=== PATIENT | male | born 1965 | race African-American/Black ===

== ENCOUNTER 2018-09-22 15:07 | Inpatient (IN) | payer OTHER ==
--- NOTE | 2018-09-22 15:33 | PDOC ---
Rapid Medical Evaluation Chief Complaint: Respiratory Time Seen by Provider: 09/22/18 15:30 Medical Evaluation: Allergies Allergy/AdvReac Type Severity Reaction Status Date / Time morphine Allergy Severe Rash Verified 09/22/18 15:31 09/22/18 15:35 I have performed a brief in-person evaluation of this patient. The patient presents with a chief complaint of: h/o CHF, HTN, DM, COPD sent in by pulmologist for evalution for worsening SOB x 3 days. Pertinent physical exam findings: A&O x 3. mild labored breathing I have ordered the following: CBC, CMP, EKG, Cardiac profile. BNP, CXR The patient will proceed to the ED for further evaluation. Discharge Disposition - Diagnosis CHF (congestive heart failure), SOB (shortness of breath) - Discharge Dispostion Condition at time of disposition: Stable - Referrals - Patient Instructions - Post Discharge Activity
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
[2018-09-22] MEDS ORDERED: ALBUTEROL SO4 2.5/IPRATROPIUM 0.5 INH SOL 3 ML VIAL.NEB. NEB ONE (16:41)
[2018-09-22 16:46] LABS: VENOUS PC02 45.1 mmHg (41-51); VENOUS PH 7.38 (7.31-7.41); VENOUS PO2 55.9 mmHg (30-40)
[2018-09-22 16:46] LABS: BASO % 0.5 % (0-2.0); EOS % 2.1 % (0-4.5); HEMATOCRIT 29.4 % (35.4-49); HEMOGLOBIN 9.4 GM/dL (11.7-16.9); LYMPH % 20.8 % (8-40); MCH 28.6 pg (25.7-33.7); MCHC 32.1 g/dl (32.0-35.9); MEAN PLT VOLUME 7.9 fl (7.5-11.1); MONO % 8.8 % (3.8-10.2); NEUT % 67.8 % (42.8-82.8); PLATELET COUNT 247 K/MM3 (134-434); RDW 16.8 % (11.9-15.9); WHITE BLOOD COUNT 7.1 K/mm3 (4.0-10.0)
[2018-09-22] MEDS: ALBUTEROL SO4 2.5/IPRATROPIUM 0.5 INH SOL 3 ML VIAL.NEB. NEB SCH (16:49)
[2018-09-22 17:07] LABS: INR 0.98 (0.83-1.09); PROTHROMBIN TIME (PATIENT) 11.6 SEC (9.7-13.0)
[2018-09-22 17:10] LABS: ACTIVATED PTT 38.6 SECONDS (25.2-36.5)
[2018-09-22 17:16] LABS: ALK PHOS 72 U/L (45-117); ANION GAP 8 MMOL/L (8-16); BILIRUBIN,TOTAL 0.5 mg/dL (0.2-1); BLOOD UREA NITROGEN 15 mg/dL (7-18); CALCIUM 8.8 mg/dL (8.5-10.1); CHLORIDE 102 mmol/L (98-107); CO2 28 mmol/L (21-32); CREATININE 2.4 mg/dL (0.55-1.3); GLUCOSE,RANDOM 105 mg/dL (74-106); N-TERMINAL BNP < 5.0 pg/ml (5-125); POTASSIUM 4.3 mmol/L (3.5-5.1); SGOT/AST 26 U/L (15-37); SGPT/ALT 33 U/L (13-61); SODIUM 137 mmol/L (136-145); TOT PROT 7.7 g/dl (6.4-8.2)
[2018-09-22] MEDS ORDERED: methylPREDNISolone NA SUCC 125 MG/2 ML VIAL IVPUSH ONE (17:30)
[2018-09-22] MEDS ORDERED: methylPREDNISolone NA SUCC 125 MG/2 ML VIAL ONE (18:30)
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
[2018-09-22] MEDS ORDERED: ALBUTEROL SO4 2.5/IPRATROPIUM 0.5 INH SOL 3 ML VIAL.NEB. NEB PRN (20:16)
[2018-09-22] MEDS ORDERED: ALPRAZOLAM 2 MG PO SCH (22:00)
[2018-09-22] MEDS: ALPRAZolam 2 MG TABLET PO SCH (23:09)
[2018-09-22] MEDS: QUEtiapine FUMARATE 25 MG TABLET (FP) PO SCH (23:10)
[2018-09-22] MEDS: ATORVASTATIN CA 20 MG TABLET (FP) PO SCH (23:10)
[2018-09-22] MEDS: metFORMIN HCL 500 MG TABLET (FP) PO SCH (23:10)
[2018-09-22] MEDS: oxyCODONE HCL 5 MG TABLET PO PRN (23:11)
[2018-09-22] MEDS: methylPREDNISolone NA SUCC 40 MG/1 ML VIAL IVPUSH SCH (23:12)
[2018-09-22] MEDS: HEPARIN NA (PORCINE) 5,000 UNITS/ML 1ML VIAL SQ SCH (23:13)
[2018-09-23] MEDS: methylPREDNISolone NA SUCC 40 MG/1 ML VIAL IVPUSH SCH ×4 (03:50→22:31)
[2018-09-23] MEDS: metFORMIN HCL 500 MG TABLET (FP) PO SCH (06:46)
[2018-09-23] MEDS: sitaGLIPtin PHOSPHATE 100 MG TABLET (FP) PO SCH (06:46)
[2018-09-23] MEDS ORDERED: metFORMIN HCL 500 MG TABLET (FP) PO SCH (07:00)
[2018-09-23 07:39] LABS: BASO % 0.2 % (0-2.0); EOS % 0.1 % (0-4.5); HEMATOCRIT 28.6 % (35.4-49); HEMOGLOBIN 9.4 GM/dL (11.7-16.9); LYMPH % 6.8 % (8-40); MCH 28.8 pg (25.7-33.7); MCHC 32.7 g/dl (32.0-35.9); MEAN CELL VOLUME 88.1 fl (80-96); MEAN PLT VOLUME 8.3 fl (7.5-11.1); MONO % 1.3 % (3.8-10.2); NEUT % 91.6 % (42.8-82.8); PLATELET COUNT 270 K/MM3 (134-434); RBC 3.25 M/mm3 (4.00-5.60); RDW 16.9 % (11.9-15.9)
[2018-09-23 08:03] LABS: ALBUMIN 3.8 g/dl (3.4-5.0); BILIRUBIN,TOTAL 0.4 mg/dL (0.2-1); CALCIUM 8.6 mg/dL (8.5-10.1); CREATININE 2.1 mg/dL (0.55-1.3); TOT PROT 7.7 g/dl (6.4-8.2)
[2018-09-23] MEDS ORDERED: LISINOPRIL 20 MG TABLET (FP) PO SCH (10:00)
[2018-09-23] MEDS ORDERED: PATIENT'S OWN MEDICATION (NON-FORMULARY) (Linagliptin [Tradjenta] 5 MG) PO SCH (10:00)
[2018-09-23] MEDS ORDERED: PANTOPRAZOLE 40 MG TABLET (FP) PO SCH (10:00)
[2018-09-23] MEDS: HEPARIN NA (PORCINE) 5,000 UNITS/ML 1ML VIAL SQ SCH ×3 (10:00→22:33)
[2018-09-23] MEDS ORDERED: PT OWN MED DRAWER 7, Y5N ONE (10:09)
[2018-09-23] MEDS: amLODIPine BESYLATE 2.5 MG TABLET (FP) PO SCH (10:11)
[2018-09-23] MEDS: FUROSEMIDE 40 MG TABLET (FP) PO SCH (10:12)
[2018-09-23] MEDS: ALPRAZolam 2 MG TABLET PO SCH ×2 (10:12→22:34)
[2018-09-23] MEDS: ASPIRIN 81 MG CHEWABLE TABLETS PO SCH (10:13)
[2018-09-23] MEDS: ARIPiprazole 20 MG TABLET PO SCH (10:14)
[2018-09-23] MEDS: oxyCODONE HCL 5 MG TABLET PO PRN ×2 (10:46→22:37)
[2018-09-23 11:21] LABS: ANISOCYTOSIS 1+; MACROCYTOSIS 1+; OVALOCYTE 1+; PLATELET ESTIMATE NORMAL
--- NOTE | 2018-09-23 11:50 | PN ---
Progress Note (short form) - Note Progress Note: PULMONARY CONSULTATION DICTATEC 09/23/18 IMP DYSPNEA COPD EXACERBATION ANEMIA KIMI TRACE NOT ON CPAP MORBID OBESITY ? PE H/O MAC DM HTN TOBACCO ABUSE PLAN INHALE BRONCHODILATORS O2 MEDROL AC V/Q SCAN MONITOR LYTES,RENAL FUNCTION STOOL FOR OCCULT BLOOD CARDIOLOGY EVALUATION SMOKING CESSATION COUNSELED DR HANSEN Problem List - Problems (1) Sleep apnea Code(s): G47.30 - SLEEP APNEA, UNSPECIFIED (2) Anemia Code(s): D64.9 - ANEMIA, UNSPECIFIED (3) COPD exacerbation Code(s): J44.1 - CHRONIC OBSTRUCTIVE PULMONARY DISEASE W (ACUTE) EXACERBATION (4) Hypoxia Code(s): R09.02 - HYPOXEMIA (5) Renal insufficiency Code(s): N28.9 - DISORDER OF KIDNEY AND URETER, UNSPECIFIED (6) SOB (shortness of breath) Code(s): R06.02 - SHORTNESS OF BREATH (7) Asthma exacerbation Code(s): J45.901 - UNSPECIFIED ASTHMA WITH (ACUTE) EXACERBATION
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
[2018-09-23] MEDS: RANITIDINE HCL 150 MG TABLET (FP) PO SCH ×2 (12:53→22:34)
[2018-09-23] MEDS ORDERED: ALBUTEROL SO4 8 GM HFA INHALER IH PRN (12:57)
--- NOTE | 2018-09-23 13:14 | CONSULT ---
Consult Consult Specialty:: Nephrology Reason for Consultation:: KIMI vs CKD - History of Present Illness Chief Complaint: shortness of breath History of Present Illness: Pt is a 53 year old male with pmhx of copd, pn a, anxiety, bipolar, depression and pnuemothorax who presents to the ER with progressive shortness of breath. He was admitted for copd exacerbation and given steroids. He was found to have elevated creatinine and I was called to evaluate him. He says that he was told that his kidneys were not function properly in the past but does not remember how bad they were. He denies hematuria or dysuria. He denies nsaid use. He denies fevers or chills. - History Source History Provided By: Patient, Medical Record - Past Medical History Cardio/Vascular: Yes: HTN, Hyperlipdemia Pulmonary: Yes: COPD Psych: Yes: Anxiety - Alcohol/Substance Use Hx Alcohol Use: Yes (2-3 DRINKS DAILY) - Smoking History Smoking history: Current every day smoker Have you smoked in the past 12 months: Yes Aproximately how many cigarettes per day: 10 Home Medications - Allergies Allergies/Adverse Reactions: Allergies Allergy/AdvReac Type Severity Reaction Status Date / Time morphine Allergy Severe Rash Verified 09/22/18 15:31 - Home Medications Home Medications: Ambulatory Orders Albuterol 0.083% Nebulizer Judy [Ventolin 0.083% Nebulizer Soln -] 1 [facility] Q6H 01/25/14 Albuterol 0.083% Nebulizer Judy [Ventolin 0.083% Nebulizer Soln -] 1 [facility] QID PRN #30 vial 01/25/14 Alprazolam [Xanax] 2 mg PO BID 01/25/14 Atorvastatin Ca [Lipitor -] 20 mg PO HS 01/25/14 Amlodipine Besylate 2.5 mg PO DAILY 09/22/18 Aripiprazole [Abilify] 20 mg PO DAILY 09/22/18 Aspirin 81 mg PO DAILY 09/22/18 Cholecalciferol (Vitamin D3) [Vitamin D3 -] 2,000 unit PO DAILY 09/22/18 Furosemide [Lasix -] 40 mg PO DAILY 09/22/18 Linagliptin [Tradjenta] 5 mg PO ASDIR 09/22/18 Lisinopril [Prinivil] 20 mg PO DAILY 09/22/18 Metformin HCl [Glucophage] 1,000 mg PO BID 09/22/18 Oxycodone HCl/Acetaminophen [Percocet 5-325 mg Tablet] 2 tab PO BID 09/22/18 Quetiapine Fumarate [Seroquel -] 25 mg PO HS 09/22/18 Family Disease History - Family Disease History Family History: Denies Review of Systems - Review of Systems Constitutional: reports: No Symptoms Eyes: reports: No Symptoms HENT: reports: No Symptoms Neck: reports: No Symptoms Cardiovascular: reports: Shortness of Breath. denies: Chest Pain Respiratory: reports: Cough, SOB, SOB on Exertion Gastrointestinal: reports: No Symptoms Genitourinary: reports: No Symptoms Musculoskeletal: reports: No Symptoms Integumentary: reports: No Symptoms Neurological: reports: No Symptoms Endocrine: reports: No Symptoms Hematology/Lymphatic: reports: No Symptoms Psychiatric: reports: No Symptoms Physical Exam Vital Signs: Vital Signs Temperature 98 F 09/23/18 10:00 Pulse Rate 66 09/23/18 10:00 Respiratory Rate 18 09/23/18 10:00 Blood Pressure 120/52 L 09/23/18 10:00 O2 Sat by Pulse Oximetry (%) 94 L 09/22/18 20:45 Constitutional: Yes: Calm Eyes: Yes: Conjunctiva Clear HENT: Yes: Atraumatic Neck: Yes: Supple Cardiovascular: Yes: S1, S2 Respiratory: Yes: CTA Bilaterally Gastrointestinal: Yes: Soft Renal/: Yes: WNL Musculoskeletal: Yes: WNL Edema: Yes Edema: LLE: 2+, RLE: 2+ Neurological: Yes: Oriented Psychiatric: Yes: Oriented Labs: CBC, BMP 09/23/18 05:30 09/23/18 05:30 Laboratory Tests 01/25/14 09/22/18 09/23/18 20:50 16:29 05:30 Hgb 9.4 L Sodium 137 Potassium 4.3 Chloride Carbon Dioxide Anion Gap BUN Creatinine 1.0 2.4 H 09/23/18 05:30 Hgb Sodium 130 L Potassium 6.0 H Chloride 98 Carbon Dioxide 25 Anion Gap 8 BUN 25 H Creatinine 2.1 H Imaging - Results Chest X-ray: Report Reviewed Problem List - Problems (1) Hyperkalemia Code(s): E87.5 - HYPERKALEMIA (2) Anemia Code(s): D64.9 - ANEMIA, UNSPECIFIED (3) COPD exacerbation Code(s): J44.1 - CHRONIC OBSTRUCTIVE PULMONARY DISEASE W (ACUTE) EXACERBATION (4) Renal insufficiency Code(s): N28.9 - DISORDER OF KIDNEY AND URETER, UNSPECIFIED (5) SOB (shortness of breath) Code(s): R06.02 - SHORTNESS OF BREATH Assessment/Plan Current Medications Generic Name Dose Route Start Last Admin Trade Name Freq PRN Reason Stop Dose Admin Albuterol Sulfate 1 amp 09/23/18 12:04 Ventolin 0.083% Nebulizer Soln - NEB Q4H PRN SHORT OF BREATH/WHEEZING Albuterol Sulfate 2 puff 09/23/18 12:57 Ventolin Hfa Inhaler - IH Q4H PRN SHORT OF BREATH/WHEEZING Alprazolam 2 mg 09/22/18 22:00 09/23/18 10:12 Xanax - PO 2 mg BID CARLOS Administration Amlodipine Besylate 2.5 mg 09/23/18 10:00 09/23/18 10:11 Norvasc - PO 2.5 mg DAILY CARLOS Administration Aripiprazole 20 mg 09/23/18 10:00 09/23/18 10:14 Abilify PO 20 mg DAILY CARLOS Administration Aspirin 81 mg 09/23/18 10:00 09/23/18 10:13 Asa - PO 81 mg DAILY CARLOS Administration Atorvastatin Calcium 20 mg 09/22/18 22:00 09/22/18 23:10 Lipitor - PO 20 mg HS CARLOS Administration Furosemide 40 mg 09/23/18 10:00 09/23/18 10:12 Lasix - PO 40 mg DAILY CARLOS Administration Heparin Sodium (Porcine) 5,000 unit 09/22/18 22:00 09/23/18 10:15 Heparin - SQ 5,000 unit BID CARLOS Administration Lisinopril 20 mg 09/23/18 10:00 09/23/18 10:13 Prinivil PO 20 mg DAILY CARLOS Administration Metformin HCl 1,000 mg 09/22/18 23:15 09/23/18 06:46 Glucophage - PO 1,000 mg BID@0700,2200 CARLOS Administration Methylprednisolone Sodium Succinate 60 mg 09/22/18 21:00 09/23/18 10:15 Solu-Medrol - IVPUSH 60 mg Q6H-IV CARLOS Administration Oxycodone HCl 10 mg 09/22/18 22:50 09/23/18 10:46 Roxicodone - PO 10 mg Q6H PRN Administration PAIN LEVEL 4 - 6 Quetiapine Fumarate 25 mg 09/22/18 23:15 09/22/18 23:10 Seroquel - PO 25 mg HS CARLOS Administration Ranitidine HCl 150 mg 09/23/18 12:45 09/23/18 12:53 Zantac - PO 150 mg BID CARLOS Administration Sitagliptin Phosphate 100 mg 09/23/18 07:00 09/23/18 06:46 Januvia - PO 100 mg DAILY@0700 CARLOS Administration Umeclidinium/Vilanterol 1 puff 09/23/18 12:00 Anoro Ellipta 62.5-25 Mcg Inh IH DAILY CARLOS Impression 1. CKD vs kimi 2. hyperkalemia 3. copd 4. obesity 5. hx smoking 6. dm 7. 

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
--- NOTE | 2018-09-23 13:45 | EKG ---
Test Reason : Blood Pressure : / mmHG Vent. Rate : 105 BPM Atrial Rate : 105 BPM P-R Int : 172 ms QRS Dur : 074 ms QT Int : 326 ms P-R-T Axes : 078 007 068 degrees QTc Int : 430 ms SINUS TACHYCARDIA OTHERWISE NORMAL ECG WHEN COMPARED WITH ECG OF 25-JAN-2014 23:36, NO SIGNIFICANT CHANGE WAS FOUND Confirmed by MD Lim Daniel ([id number]) on 09/23/2018 1:44:46 PM Referred By: Confirmed By:Jeff Lim MD
[2018-09-23 14:31] LABS: CALCIUM 8.6 mg/dL (8.5-10.1); POTASSIUM 5.4 mmol/L (3.5-5.1)
[2018-09-23] MEDS ORDERED: FUROSEMIDE 40 MG TABLET (FP) PO ONE (15:15)
--- NOTE | 2018-09-23 15:49 | PN ---
Progress Note, Physician - Current Medication List Current Medications: Active Medications Albuterol Sulfate (Ventolin 0.083% Nebulizer Soln -) 1 amp NEB Q4H PRN PRN Reason: SHORT OF BREATH/WHEEZING Albuterol Sulfate (Ventolin Hfa Inhaler -) 2 puff IH Q4H PRN PRN Reason: SHORT OF BREATH/WHEEZING Alprazolam (Xanax -) 2 mg PO BID [facility] Last Admin: 09/23/18 10:12 Dose: 2 mg Amlodipine Besylate (Norvasc -) 2.5 mg PO DAILY [facility] Last Admin: 09/23/18 10:11 Dose: 2.5 mg Aripiprazole (Abilify) 20 mg PO DAILY [facility] Last Admin: 09/23/18 10:14 Dose: 20 mg Aspirin (Asa -) 81 mg PO DAILY [facility] Last Admin: 09/23/18 10:13 Dose: 81 mg Atorvastatin Calcium (Lipitor -) 20 mg PO HS [facility] Last Admin: 09/22/18 23:10 Dose: 20 mg Furosemide (Lasix -) 40 mg PO DAILY [facility] Last Admin: 09/23/18 10:12 Dose: 40 mg Heparin Sodium (Porcine) (Heparin -) 5,000 unit SQ BID [facility] Last Admin: 09/23/18 10:15 Dose: 5,000 unit Methylprednisolone Sodium Succinate (Solu-Medrol -) 60 mg IVPUSH Q6H-IV [facility] Last Admin: 09/23/18 10:15 Dose: 60 mg Nicotine (Nicoderm Patch -) 21 mg TD DAILY [facility] Oxycodone HCl (Roxicodone -) 10 mg PO Q6H PRN PRN Reason: PAIN LEVEL 4 - 6 Last Admin: 09/23/18 10:46 Dose: 10 mg Quetiapine Fumarate (Seroquel -) 25 mg PO HS [facility] Last Admin: 09/22/18 23:10 Dose: 25 mg Ranitidine HCl (Zantac -) 150 mg PO BID [facility] Last Admin: 09/23/18 12:53 Dose: 150 mg Sitagliptin Phosphate (Januvia -) 100 mg PO DAILY@0700 [facility] Last Admin: 09/23/18 06:46 Dose: 100 mg Umeclidinium/Vilanterol (Anoro Ellipta 62.5-25 Mcg Inh) 1 puff IH DAILY [facility] - Objective Vital Signs: Vital Signs Temperature 98 F 09/23/18 10:00 Pulse Rate 104 H 09/23/18 15:43 Respiratory Rate 20 09/23/18 15:43 Blood Pressure 109/70 09/23/18 15:43 O2 Sat by Pulse Oximetry (%) 94 L 09/22/18 20:45 Constitutional: Yes: No Distress HENT: Yes: Atraumatic Neck: Yes: Supple Cardiovascular: Yes: Regular Rate and Rhythm Respiratory: Yes: CTA Bilaterally Extremities: Yes: WNL Neurological: Yes: Alert, Oriented Labs: CBC, BMP 09/23/18 05:30 09/23/18 13:53 INR, PTT INR 0.98 (0.83-1.09) 09/22/18 16:20 Problem List - Problems (1) COPD exacerbation Assessment/Plan: iv steroids duo nebs Code(s): J44.1 - CHRONIC OBSTRUCTIVE PULMONARY DISEASE W (ACUTE) EXACERBATION (2) Hypoxia Assessment/Plan: on oxygen Code(s): R09.02 - HYPOXEMIA (3) SOB (shortness of breath) Code(s): R06.02 - SHORTNESS OF BREATH (4) Acute on chronic diastolic CHF (congestive heart failure) Code(s): I50.33 - ACUTE ON CHRONIC DIASTOLIC (CONGESTIVE) HEART FAILURE (5) Bipolar disorder Assessment/Plan: on meds stable Code(s): F31.9 - BIPOLAR DISORDER, UNSPECIFIED (6) HTN (hypertension) Assessment/Plan: on meds Code(s): I10 - ESSENTIAL (PRIMARY) HYPERTENSION
--- NOTE | 2018-09-23 15:53 | ECHO ---
Name: HARJIT MCKEON Exam:Adult Echocardiogram Study Date: 09/23/2018 02:55 PM Age: 53 yrs Reason For Study: DYSPNEA Height: 67 in Weight: 326 lb BSA: 2.5 m2 MMode/2D Measurements & Calculations IVSd: 0.81 cm Ao root diam: 3.0 cm LVIDd: 4.8 cm LA dimension: 4.0 cm LVIDs: 3.1 cm LVPWd: 0.74 cm EDV(Teich): 106.8 ml LVOT diam: 2.3 cm ESV(Teich): 39.2 ml Doppler Measurements & Calculations MV E max jeronimo: 94.8 cm/sec Ao V2 max: 159.7 cm/sec MV A max jeronimo: 104.6 cm/sec Ao max P.2 mmHg MV E/A: 0.91 Ao V2 mean: 122.8 cm/sec MV dec time: 0.17 sec Ao mean P.8 mmHg Ao V2 VTI: 32.0 cm NORMA(I,D): 3.2 cm2 NORMA(V,D): 3.6 cm2 LV V1 max P.3 mmHg SV(LVOT): 101.5 ml LV V1 mean P.2 mmHg LV V1 max: 135.2 cm/sec LV V1 mean: 95.9 cm/sec LV V1 VTI: 24.0 cm Med Peak E' Jeronimo: 6.2 cm/sec Med E/e': 15.2 Lat Peak E' Jeronimo: 7.9 cm/sec Lat E/e': 12.0 Procedure The study was technically difficult with many images being suboptimal in quality. Left Ventricle The left ventricular size, thickness and function are normal. Ejection Fraction = 55%. Grade I diasto lic dysfunction, (abnormal relaxation pattern). Right Ventricle The right ventricle is normal in size and function. Atria The left atrium is mildly dilated. Right atrial size is normal. Mitral Valve The mitral valve is normal in structure and function. Tricuspid Valve The tricuspid valve is normal in structure and function. There was insufficient TR detected to calcul ate RV systolic pressure. Aortic Valve The aortic valve is normal in structure and function. Pulmonic Valve The pulmonic valve is not well visualized. Great Vessels The aortic root is normal size. Pericardium/Pleura There is no pericardial effusion. Interpretation Summary The left ventricular size, thickness and function are normal The right ventricle is normal in size and function. Reinier Mccormick 09/23/2018 03:52 PM
--- NOTE | 2018-09-23 15:58 | EKG ---
Test Reason : Blood Pressure : / mmHG Vent. Rate : 101 BPM Atrial Rate : 101 BPM P-R Int : 200 ms QRS Dur : 076 ms QT Int : 334 ms P-R-T Axes : 063 003 067 degrees QTc Int : 433 ms SINUS TACHYCARDIA OTHERWISE NORMAL ECG WHEN COMPARED WITH ECG OF 22-SEP-2018 15:25, NO SIGNIFICANT CHANGE WAS FOUND Confirmed by Reinier Mccormick ([id number]) on 09/23/2018 3:57:56 PM Referred By: Confirmed By:Reinier Mccormick
[2018-09-23] MEDS: NICOTINE 21 MG/24 HOURS TOPICAL PATCH TD SCH (16:42)
[2018-09-23] MEDS: UMECLIDINIUM/VILANTEROL (ANORO) 62.5/25 MCG INHALER IH SCH (18:46)
[2018-09-23] MEDS ORDERED: QUEtiapine FUMARATE 25 MG TABLET (FP) PO SCH (22:00)
[2018-09-23] MEDS: QUEtiapine FUMARATE 25 MG TABLET (FP) PO SCH (22:34)
[2018-09-23] MEDS: ATORVASTATIN CA 20 MG TABLET (FP) PO SCH (22:34)
[2018-09-24] MEDS: methylPREDNISolone NA SUCC 40 MG/1 ML VIAL IVPUSH SCH ×4 (03:15→21:52)
[2018-09-24] MEDS: sitaGLIPtin PHOSPHATE 100 MG TABLET (FP) PO SCH (06:26)
[2018-09-24 07:47] LABS: ALBUMIN 3.7 g/dl (3.4-5.0); BILIRUBIN,TOTAL 0.3 mg/dL (0.2-1); CALCIUM 8.5 mg/dL (8.5-10.1); TOT PROT 7.3 g/dl (6.4-8.2)
[2018-09-24] MEDS ORDERED: PT OWN MED DRAWER 7, Y5N ONE (09:27)
[2018-09-24] MEDS: HEPARIN NA (PORCINE) 5,000 UNITS/ML 1ML VIAL SQ SCH (09:46)
[2018-09-24] MEDS: NICOTINE 21 MG/24 HOURS TOPICAL PATCH TD SCH (09:47)
[2018-09-24] MEDS: ALPRAZolam 2 MG TABLET PO SCH ×2 (09:47→21:52)
[2018-09-24] MEDS: ASPIRIN 81 MG CHEWABLE TABLETS PO SCH (09:47)
[2018-09-24] MEDS: RANITIDINE HCL 150 MG TABLET (FP) PO SCH ×2 (09:47→21:52)
[2018-09-24] MEDS: FUROSEMIDE 40 MG TABLET (FP) PO SCH (09:47)
[2018-09-24] MEDS: amLODIPine BESYLATE 2.5 MG TABLET (FP) PO SCH (09:47)
[2018-09-24] MEDS: ARIPiprazole 20 MG TABLET PO SCH ×2 (09:48→17:49)
--- NOTE | 2018-09-24 09:55 | PN ---
Progress Note, Physician History of Present Illness: Pt seen and examined at bedside. He is asking to go home. He denies dysuria or hematuria. I discussed his renal failure with him and he would like to have the workup as an outpt. - Current Medication List Current Medications: Active Medications Albuterol Sulfate (Ventolin 0.083% Nebulizer Soln -) 1 amp NEB Q4H PRN PRN Reason: SHORT OF BREATH/WHEEZING Albuterol Sulfate (Ventolin Hfa Inhaler -) 2 puff IH Q4H PRN PRN Reason: SHORT OF BREATH/WHEEZING Last Admin: 09/23/18 18:50 Dose: 2 puff Alprazolam (Xanax -) 2 mg PO BID [facility] Last Admin: 09/24/18 09:47 Dose: 2 mg Amlodipine Besylate (Norvasc -) 2.5 mg PO DAILY [facility] Last Admin: 09/24/18 09:47 Dose: 2.5 mg Aripiprazole (Abilify) 20 mg PO DAILY [facility] Last Admin: 09/24/18 09:48 Dose: 20 mg Aspirin (Asa -) 81 mg PO DAILY [facility] Last Admin: 09/24/18 09:47 Dose: 81 mg Atorvastatin Calcium (Lipitor -) 20 mg PO HS [facility] Last Admin: 09/23/18 22:34 Dose: 20 mg Furosemide (Lasix -) 40 mg PO DAILY [facility] Last Admin: 09/24/18 09:47 Dose: 40 mg Heparin Sodium (Porcine) (Heparin -) 5,000 unit SQ BID [facility] Last Admin: 09/24/18 09:46 Dose: 5,000 unit Methylprednisolone Sodium Succinate (Solu-Medrol -) 60 mg IVPUSH Q6H-IV [facility] Last Admin: 09/24/18 09:46 Dose: 60 mg Nicotine (Nicoderm Patch -) 21 mg TD DAILY [facility] Last Admin: 09/24/18 09:47 Dose: 21 mg Oxycodone HCl (Roxicodone -) 10 mg PO Q6H PRN PRN Reason: PAIN LEVEL 4 - 6 Last Admin: 09/23/18 22:37 Dose: 10 mg Quetiapine Fumarate (Seroquel -) 25 mg PO HS [facility] Last Admin: 09/23/18 22:34 Dose: 25 mg Ranitidine HCl (Zantac -) 150 mg PO BID [facility] Last Admin: 09/24/18 09:47 Dose: 150 mg Sitagliptin Phosphate (Januvia -) 100 mg PO DAILY@0700 [facility] Last Admin: 09/24/18 06:26 Dose: 100 mg Umeclidinium/Vilanterol (Anoro Ellipta 62.5-25 Mcg Inh) 1 puff IH DAILY [facility] Last Admin: 09/23/18 18:46 Dose: 1 puff - Objective Vital Signs: Vital Signs Temperature 98 F 09/24/18 09:00 Pulse Rate 104 H 09/24/18 09:00 Respiratory Rate 20 09/24/18 09:00 Blood Pressure 139/60 09/24/18 09:00 O2 Sat by Pulse Oximetry (%) 94 L 09/23/18 21:00 Constitutional: Yes: Calm Eyes: Yes: Conjunctiva Clear HENT: Yes: Atraumatic Neck: Yes: Supple Cardiovascular: Yes: S1, S2 Respiratory: Yes: CTA Bilaterally Gastrointestinal: Yes: Soft Genitourinary: Yes: WNL Musculoskeletal: Yes: WNL Edema: Yes Edema: LLE: 2+, RLE: 2+ Neurological: Yes: Oriented Psychiatric: Yes: Oriented Labs: CBC, BMP 09/23/18 05:30 09/24/18 05:30 INR, PTT INR 0.98 (0.83-1.09) 09/22/18 16:20 Problem List - Problems (1) Hyperkalemia Code(s): E87.5 - HYPERKALEMIA (2) Anemia Code(s): D64.9 - ANEMIA, UNSPECIFIED (3) COPD exacerbation Code(s): J44.1 - CHRONIC OBSTRUCTIVE PULMONARY DISEASE W (ACUTE) EXACERBATION (4) Renal insufficiency Code(s): N28.9 - DISORDER OF KIDNEY AND URETER, UNSPECIFIED (5) SOB (shortness of breath) Code(s): R06.02 - SHORTNESS OF BREATH Assessment/Plan Current Medications Generic Name Dose Route Start Last Admin Trade Name Freq PRN Reason Stop Dose Admin Albuterol Sulfate 1 amp 09/23/18 12:04 Ventolin 0.083% Nebulizer Soln - NEB Q4H PRN SHORT OF BREATH/WHEEZING Albuterol Sulfate 2 puff 09/23/18 12:57 09/23/18 18:50 Ventolin Hfa Inhaler - IH 2 puff Q4H PRN Administration SHORT OF BREATH/WHEEZING Alprazolam 2 mg 09/22/18 22:00 09/24/18 09:47 Xanax - PO 2 mg BID [facility] Administration Amlodipine Besylate 2.5 mg 09/23/18 10:00 09/24/18 09:47 Norvasc - PO 2.5 mg DAILY [facility] Administration Aripiprazole 20 mg 09/23/18 10:00 09/24/18 09:48 Abilify PO 20 mg DAILY [facility] Administration Aspirin 81 mg 09/23/18 10:00 09/24/18 09:47 Asa - PO 81 mg DAILY [facility] Administration Atorvastatin Calcium 20 mg 09/22/18 22:00 09/23/18 22:34 Lipitor - PO 20 mg HS [facility] Administration Furosemide 40 mg 09/23/18 10:00 09/24/18 09:47 Lasix - PO 40 mg DAILY [facility] Administration Heparin Sodium (Porcine) 5,000 unit 09/22/18 22:00 09/24/18 09:46 Heparin - SQ 5,000 unit BID [facility] Administration Methylprednisolone Sodium Succinate 60 mg 09/22/18 21:00 09/24/18 09:46 Solu-Medrol - IVPUSH 60 mg Q6H-IV [facility] Administration Nicotine 21 mg 09/23/18 16:00 09/24/18 09:47 Nicoderm Patch - TD 21 mg DAILY [facility] Administration Oxycodone HCl 10 mg 09/22/18 22:50 09/23/18 22:37 Roxicodone - PO 10 mg Q6H PRN Administration PAIN LEVEL 4 - 6 Quetiapine Fumarate 25 mg 09/22/18 23:15 09/23/18 22:34 Seroquel - PO 25 mg HS [facility] Administration Ranitidine HCl 150 mg 09/23/18 12:45 09/24/18 09:47 Zantac - PO 150 mg BID [facility] Administration Sitagliptin Phosphate 100 mg 09/23/18 07:00 09/24/18 06:26 Januvia - PO 100 mg DAILY@0700 [facility] Administration Umeclidinium/Vilanterol 1 puff 09/23/18 12:00 09/23/18 18:46 Anoro Ellipta 62.5-25 Mcg Inh IH 1 puff DAILY [facility] Administration Impression 1. CKD vs kristie 2. hyperkalemia 3. copd 4. obesity 5. hx smoking 6. dm 7. htn Plan - potassium improved - cont lasix - keep asiya on hold - follow up urine studies - pt wants workup as outpt, can see in office - steroids with taper as tolerated - do not restart metformin - change lasix to bid for now
[2018-09-24] MEDS: oxyCODONE HCL 5 MG TABLET PO PRN ×2 (10:05→21:55)
[2018-09-24] MEDS: UMECLIDINIUM/VILANTEROL (ANORO) 62.5/25 MCG INHALER IH SCH (10:08)
--- NOTE | 2018-09-24 11:13 | PN ---
Progress Note, Physician Chief Complaint: pulmonary alert,feeling better,less dyspneic,less congested, pt unable to undergo v/q scan secondary to excessive wt cannot fit in machine - Current Medication List Current Medications: Active Medications Albuterol Sulfate (Ventolin 0.083% Nebulizer Soln -) 1 amp NEB Q4H PRN PRN Reason: SHORT OF BREATH/WHEEZING Albuterol Sulfate (Ventolin Hfa Inhaler -) 2 puff IH Q4H PRN PRN Reason: SHORT OF BREATH/WHEEZING Last Admin: 09/23/18 18:50 Dose: 2 puff Alprazolam (Xanax -) 2 mg PO BID [facility] Last Admin: 09/24/18 09:47 Dose: 2 mg Amlodipine Besylate (Norvasc -) 2.5 mg PO DAILY [facility] Last Admin: 09/24/18 09:47 Dose: 2.5 mg Aripiprazole (Abilify) 20 mg PO DAILY [facility] Last Admin: 09/24/18 09:48 Dose: 20 mg Aspirin (Asa -) 81 mg PO DAILY [facility] Last Admin: 09/24/18 09:47 Dose: 81 mg Atorvastatin Calcium (Lipitor -) 20 mg PO HS [facility] Last Admin: 09/23/18 22:34 Dose: 20 mg Furosemide (Lasix -) 40 mg PO DAILY [facility] Last Admin: 09/24/18 09:47 Dose: 40 mg Furosemide (Lasix -) 40 mg PO ONCE ONE Stop: 09/24/18 16:01 Heparin Sodium (Porcine) (Heparin -) 5,000 unit SQ BID [facility] Last Admin: 09/24/18 09:46 Dose: 5,000 unit Methylprednisolone Sodium Succinate (Solu-Medrol -) 60 mg IVPUSH Q6H-IV [facility] Last Admin: 09/24/18 09:46 Dose: 60 mg Nicotine (Nicoderm Patch -) 21 mg TD DAILY [facility] Last Admin: 09/24/18 09:47 Dose: 21 mg Oxycodone HCl (Roxicodone -) 10 mg PO Q6H PRN PRN Reason: PAIN LEVEL 4 - 6 Last Admin: 09/24/18 10:05 Dose: 10 mg Quetiapine Fumarate (Seroquel -) 25 mg PO HS [facility] Last Admin: 09/23/18 22:34 Dose: 25 mg Ranitidine HCl (Zantac -) 150 mg PO BID [facility] Last Admin: 09/24/18 09:47 Dose: 150 mg Sitagliptin Phosphate (Januvia -) 100 mg PO DAILY@0700 [facility] Last Admin: 09/24/18 06:26 Dose: 100 mg Umeclidinium/Vilanterol (Anoro Ellipta 62.5-25 Mcg Inh) 1 puff IH DAILY [facility] Last Admin: 09/24/18 10:08 Dose: 1 puff - Objective Vital Signs: Vital Signs Temperature 98 F 09/24/18 09:00 Pulse Rate 104 H 09/24/18 09:00 Respiratory Rate 20 09/24/18 09:00 Blood Pressure 139/60 09/24/18 09:00 O2 Sat by Pulse Oximetry (%) 94 L 09/23/18 21:00 Constitutional: Yes: Calm, Obese Eyes: Yes: WNL HENT: Yes: WNL Neck: Yes: WNL Cardiovascular: Yes: Regular Rate and Rhythm, S1, S2 Respiratory: Yes: Diminished Gastrointestinal: Yes: Normal Bowel Sounds, Soft Extremities: Yes: WNL Edema: Yes Labs: CBC, BMP 09/23/18 05:30 09/24/18 05:30 INR, PTT INR 0.98 (0.83-1.09) 09/22/18 16:20 Problem List - Problems (1) Sleep apnea Code(s): G47.30 - SLEEP APNEA, UNSPECIFIED (2) Anemia Code(s): D64.9 - ANEMIA, UNSPECIFIED (3) COPD exacerbation Code(s): J44.1 - CHRONIC OBSTRUCTIVE PULMONARY DISEASE W (ACUTE) EXACERBATION (4) Hypoxia Code(s): R09.02 - HYPOXEMIA (5) Renal insufficiency Code(s): N28.9 - DISORDER OF KIDNEY AND URETER, UNSPECIFIED (6) SOB (shortness of breath) Code(s): R06.02 - SHORTNESS OF BREATH (7) Asthma exacerbation Code(s): J45.901 - UNSPECIFIED ASTHMA WITH (ACUTE) EXACERBATION Assessment/Plan IMP DYSPNEA COPD EXACERBATION ANEMIA KIMI TRACE NOT ON CPAP MORBID OBESITY ? PE H/O MAC DM HTN TOBACCO ABUSE PLAN INHALE BRONCHODILATORS O2 MEDROL AC MONITOR LYTES,RENAL FUNCTION STOOL FOR OCCULT BLOOD LASIX SMOKING CESSATION COUNSELED CPAP 5cmH2O AT NIGHT DR HANSEN Problem List - Problems (1) Sleep apnea Code(s): G47.30 - SLEEP APNEA, UNSPECIFIED (2) Anemia Code(s): D64.9 - ANEMIA, UNSPECIFIED (3) COPD exacerbation Code(s): J44.1 - CHRONIC OBSTRUCTIVE PULMONARY DISEASE W (ACUTE) EXACERBATION (4) Hypoxia Code(s): R09.02 - HYPOXEMIA (5) Renal insufficiency Code(s): N28.9 - DISORDER OF KIDNEY AND URETER, UNSPECIFIED (6) SOB (shortness of breath) Code(s): R06.02 - SHORTNESS OF BREATH (7) Asthma exacerbation Code(s): J45.901 - UNSPECIFIED ASTHMA WITH (ACUTE) EXACERBATION
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
[2018-09-24] MEDS ORDERED: HEPARIN NA (PORCINE) 5,000 UNITS/ML 1ML VIAL IVPUSH PRN ×2 (11:40)
[2018-09-24] MEDS ORDERED: HEPARIN NA (PORCINE) 5,000 UNITS/ML 1ML VIAL SQ SCH (14:00)
--- NOTE | 2018-09-24 15:53 | PN ---
Progress Note, Physician - Current Medication List Current Medications: Active Medications Albuterol Sulfate (Ventolin 0.083% Nebulizer Soln -) 1 amp NEB Q4H PRN PRN Reason: SHORT OF BREATH/WHEEZING Albuterol Sulfate (Ventolin Hfa Inhaler -) 2 puff IH Q4H PRN PRN Reason: SHORT OF BREATH/WHEEZING Last Admin: 09/23/18 18:50 Dose: 2 puff Alprazolam (Xanax -) 2 mg PO BID [facility] Last Admin: 09/24/18 09:47 Dose: 2 mg Amlodipine Besylate (Norvasc -) 2.5 mg PO DAILY [facility] Last Admin: 09/24/18 09:47 Dose: 2.5 mg Aripiprazole (Abilify) 20 mg PO DAILY [facility] Last Admin: 09/24/18 09:48 Dose: 20 mg Aspirin (Asa -) 81 mg PO DAILY [facility] Last Admin: 09/24/18 09:47 Dose: 81 mg Atorvastatin Calcium (Lipitor -) 20 mg PO HS [facility] Last Admin: 09/23/18 22:34 Dose: 20 mg Heparin Sodium (Porcine) (Heparin -) 1,000 unit IVPUSH PRN PRN PRN Reason: Heparin Heparin Sodium (Porcine) (Heparin -) 5,000 unit IVPUSH PRN PRN PRN Reason: Heparin HEPARIN SOD,PORK IN 0.45% NACL (Heparin-1/2ns 25,000 Units/500) 25,000 units in 500 mls @ 20 mls/hr IVPB TITR [facility]; Protocol Methylprednisolone Sodium Succinate (Solu-Medrol -) 60 mg IVPUSH Q6H-IV [facility] Last Admin: 09/24/18 14:29 Dose: 60 mg Nicotine (Nicoderm Patch -) 21 mg TD DAILY [facility] Last Admin: 09/24/18 09:47 Dose: 21 mg Oxycodone HCl (Roxicodone -) 10 mg PO Q6H PRN PRN Reason: PAIN LEVEL 4 - 6 Last Admin: 09/24/18 10:05 Dose: 10 mg Quetiapine Fumarate (Seroquel -) 25 mg PO HS [facility] Last Admin: 09/23/18 22:34 Dose: 25 mg Ranitidine HCl (Zantac -) 150 mg PO BID [facility] Last Admin: 09/24/18 09:47 Dose: 150 mg Sitagliptin Phosphate (Januvia -) 100 mg PO DAILY@0700 [facility] Last Admin: 09/24/18 06:26 Dose: 100 mg Umeclidinium/Vilanterol (Anoro Ellipta 62.5-25 Mcg Inh) 1 puff IH DAILY [facility] Last Admin: 09/24/18 10:08 Dose: 1 puff - Objective Vital Signs: Vital Signs Temperature 98 F 09/24/18 14:00 Pulse Rate 96 H 09/24/18 14:00 Respiratory Rate 20 09/24/18 14:00 Blood Pressure 97/60 09/24/18 14:00 O2 Sat by Pulse Oximetry (%) 94 L 09/24/18 12:24 Constitutional: Yes: No Distress HENT: Yes: Atraumatic Neck: Yes: Supple Cardiovascular: Yes: Regular Rate and Rhythm Respiratory: Yes: Rhonchi Gastrointestinal: Yes: Normal Bowel Sounds Extremities: Yes: WNL Edema: No Peripheral Pulses WNL: Yes Neurological: Yes: Alert, Oriented Labs: CBC, BMP 09/23/18 05:30 09/24/18 05:30 INR, PTT INR 0.98 (0.83-1.09) 09/22/18 16:20 Problem List - Problems (1) COPD exacerbation Assessment/Plan: iv steroids duo nebs Code(s): J44.1 - CHRONIC OBSTRUCTIVE PULMONARY DISEASE W (ACUTE) EXACERBATION (2) Hypoxia Assessment/Plan: on oxygen Code(s): R09.02 - HYPOXEMIA (3) SOB (shortness of breath) Code(s): R06.02 - SHORTNESS OF BREATH (4) Bipolar disorder Assessment/Plan: on meds stable Code(s): F31.9 - BIPOLAR DISORDER, UNSPECIFIED (5) Diabetes Assessment/Plan: on meds monitor Code(s): E11.9 - TYPE 2 DIABETES MELLITUS WITHOUT COMPLICATIONS (6) HTN (hypertension) Code(s): I10 - ESSENTIAL (PRIMARY) HYPERTENSION (7) Morbid obesity Code(s): E66.01 - MORBID (SEVERE) OBESITY DUE TO EXCESS CALORIES
[2018-09-24] MEDS ORDERED: FUROSEMIDE 40 MG TABLET (FP) PO ONE (16:00)
[2018-09-24 16:46] VITALS: BMI 51.0
[2018-09-24 20:37] LABS: PH,URINE 5.5 (5.0-8.0); URINE APPEARANCE CLEAR; URINE BILIRUBIN NEGATIVE (NEGATIVE); URINE COLOR YELLOW; URINE GLUCOSE (UA) 3+ (NEGATIVE); URINE KETONE NEGATIVE (NEGATIVE); URINE LEUK ESTERASE NEGATIVE (NEGATIVE); URINE NITRITE NEGATIVE (NEGATIVE); URINE PROTEIN NEGATIVE (NEGATIVE); URINE UROBILINOGEN 0.2 mg/dL (0.2-1.0)
[2018-09-24 20:53] LABS: RATIO URIN PROTEIN/URIN CREAT 0.07 MG/DL
[2018-09-24] MEDS: HEPARIN SOD,PORK IN 0.45% NACL 25,000 UNITS/500 ML INFUS.BAG IVPB SCH (21:18)
[2018-09-24] MEDS: QUEtiapine FUMARATE 25 MG TABLET (FP) PO SCH (21:52)
[2018-09-24] MEDS: ATORVASTATIN CA 20 MG TABLET (FP) PO SCH (21:53)
[2018-09-25] MEDS: methylPREDNISolone NA SUCC 40 MG/1 ML VIAL IVPUSH SCH ×3 (03:09→22:26)
[2018-09-25] MEDS: HEPARIN SOD,PORK IN 0.45% NACL 25,000 UNITS/500 ML INFUS.BAG IVPB SCH ×2 (03:40→12:01)
[2018-09-25] MEDS: sitaGLIPtin PHOSPHATE 100 MG TABLET (FP) PO SCH (06:35)
[2018-09-25] MEDS: ALBUTEROL SO4 0.083% IH SOL 2.5 MG/3 ML VIAL.NEB. NEB PRN ×3 (07:31→20:45)
[2018-09-25 07:33] LABS: ALBUMIN 3.6 g/dl (3.4-5.0); BILIRUBIN,TOTAL 0.2 mg/dL (0.2-1); CALCIUM 8.7 mg/dL (8.5-10.1); CREATININE 1.8 mg/dL (0.55-1.3); POTASSIUM 4.9 mmol/L (3.5-5.1); TOT PROT 7.4 g/dl (6.4-8.2)
[2018-09-25 08:55] LABS: N-TERMINAL BNP 112.8 pg/ml (5-125)
[2018-09-25] MEDS: amLODIPine BESYLATE 2.5 MG TABLET (FP) PO SCH (09:26)
[2018-09-25] MEDS: NICOTINE 21 MG/24 HOURS TOPICAL PATCH TD SCH (09:26)
[2018-09-25] MEDS: RANITIDINE HCL 150 MG TABLET (FP) PO SCH ×2 (09:26→22:25)
[2018-09-25] MEDS: ALPRAZolam 2 MG TABLET PO SCH ×2 (09:26→22:26)
[2018-09-25] MEDS: ASPIRIN 81 MG CHEWABLE TABLETS PO SCH (09:26)
[2018-09-25] MEDS: UMECLIDINIUM/VILANTEROL (ANORO) 62.5/25 MCG INHALER IH SCH (09:27)
[2018-09-25] MEDS ORDERED: PT OWN MED DRAWER 7, Y5N ONE (10:02)
[2018-09-25] MEDS: oxyCODONE HCL 5 MG TABLET PO PRN ×3 (10:04→22:25)
--- NOTE | 2018-09-25 11:44 | PN ---
Progress Note, Physician History of Present Illness: Pt seen and examined at bedside. He is awake and alert. He says that his breathing is improved. He is on a heparin drip. He is requesting to go home. Pt ordered fried chicken and lao fries. I discussed diet with him. - Current Medication List Current Medications: Active Medications Albuterol Sulfate (Ventolin 0.083% Nebulizer Soln -) 1 amp NEB Q4H PRN PRN Reason: SHORT OF BREATH/WHEEZING Last Admin: 09/25/18 07:31 Dose: 1 amp Albuterol Sulfate (Ventolin Hfa Inhaler -) 2 puff IH Q4H PRN PRN Reason: SHORT OF BREATH/WHEEZING Last Admin: 09/23/18 18:50 Dose: 2 puff Alprazolam (Xanax -) 2 mg PO BID [facility] Last Admin: 09/25/18 09:26 Dose: 2 mg Amlodipine Besylate (Norvasc -) 2.5 mg PO DAILY [facility] Last Admin: 09/25/18 09:26 Dose: 2.5 mg Aripiprazole (Abilify) 20 mg PO DAILY [facility] Aspirin (Asa -) 81 mg PO DAILY [facility] Last Admin: 09/25/18 09:26 Dose: 81 mg Atorvastatin Calcium (Lipitor -) 20 mg PO HS [facility] Last Admin: 09/24/18 21:53 Dose: 20 mg Heparin Sodium (Porcine) (Heparin -) 1,000 unit IVPUSH PRN PRN PRN Reason: Heparin Heparin Sodium (Porcine) (Heparin -) 5,000 unit IVPUSH PRN PRN PRN Reason: Heparin Last Admin: 09/25/18 03:41 Dose: 5,000 unit HEPARIN SOD,PORK IN 0.45% NACL (Heparin-1/2ns 25,000 Units/500) 25,000 units in 500 mls @ 20 mls/hr IVPB TITR [facility]; Protocol Last Admin: 09/25/18 03:40 Dose: 1,150 units/hr, 23 mls/hr Methylprednisolone Sodium Succinate (Solu-Medrol -) 60 mg IVPUSH Q6H-IV [facility] Last Admin: 09/25/18 09:25 Dose: 60 mg Nicotine (Nicoderm Patch -) 21 mg TD DAILY [facility] Last Admin: 09/25/18 09:26 Dose: 21 mg Oxycodone HCl (Roxicodone -) 10 mg PO Q6H PRN PRN Reason: PAIN LEVEL 4 - 6 Last Admin: 09/25/18 10:04 Dose: 10 mg Quetiapine Fumarate (Seroquel -) 25 mg PO HS [facility] Last Admin: 09/24/18 21:52 Dose: 25 mg Ranitidine HCl (Zantac -) 150 mg PO BID [facility] Last Admin: 09/25/18 09:26 Dose: 150 mg Sitagliptin Phosphate (Januvia -) 100 mg PO DAILY@0700 [facility] Last Admin: 09/25/18 06:35 Dose: 100 mg Umeclidinium/Vilanterol (Anoro Ellipta 62.5-25 Mcg Inh) 1 puff IH DAILY [facility] Last Admin: 09/25/18 09:27 Dose: 1 puff - Objective Vital Signs: Vital Signs Temperature 97.8 F 09/25/18 01:39 Pulse Rate 68 09/25/18 01:39 Respiratory Rate 20 09/25/18 01:39 Blood Pressure 112/78 09/25/18 01:39 O2 Sat by Pulse Oximetry (%) 94 L 09/24/18 21:00 Constitutional: Yes: Calm Eyes: Yes: Conjunctiva Clear HENT: Yes: Atraumatic Neck: Yes: Supple Cardiovascular: Yes: S1, S2 Respiratory: Yes: On Nasal O2 Gastrointestinal: Yes: Soft, Abdomen, Obese Genitourinary: Yes: WNL Edema: Yes Edema: LLE: Trace, RLE: Trace Neurological: Yes: Oriented Psychiatric: Yes: Oriented Labs: CBC, BMP 09/23/18 05:30 09/25/18 05:30 INR, PTT INR 0.98 (0.83-1.09) 09/22/18 16:20 Problem List - Problems (1) Hyperkalemia Code(s): E87.5 - HYPERKALEMIA (2) Anemia Code(s): D64.9 - ANEMIA, UNSPECIFIED (3) COPD exacerbation Code(s): J44.1 - CHRONIC OBSTRUCTIVE PULMONARY DISEASE W (ACUTE) EXACERBATION (4) Renal insufficiency Code(s): N28.9 - DISORDER OF KIDNEY AND URETER, UNSPECIFIED (5) SOB (shortness of breath) Code(s): R06.02 - SHORTNESS OF BREATH Assessment/Plan Current Medications Generic Name Dose Route Start Last Admin Trade Name Freq PRN Reason Stop Dose Admin Albuterol Sulfate 1 amp 09/23/18 12:04 09/25/18 07:31 Ventolin 0.083% Nebulizer Soln - NEB 1 amp Q4H PRN Administration SHORT OF BREATH/WHEEZING Albuterol Sulfate 2 puff 09/23/18 12:57 09/23/18 18:50 Ventolin Hfa Inhaler - IH 2 puff Q4H PRN Administration SHORT OF BREATH/WHEEZING Alprazolam 2 mg 09/22/18 22:00 09/25/18 09:26 Xanax - PO 2 mg BID [facility] Administration Amlodipine Besylate 2.5 mg 09/23/18 10:00 09/25/18 09:26 Norvasc - PO 2.5 mg DAILY [facility] Administration Aripiprazole 20 mg 09/25/18 10:00 Abilify PO DAILY [facility] Aspirin 81 mg 09/23/18 10:00 09/25/18 09:26 Asa - PO 81 mg DAILY [facility] Administration Atorvastatin Calcium 20 mg 09/22/18 22:00 09/24/18 21:53 Lipitor - PO 20 mg HS [facility] Administration Heparin Sodium (Porcine) 1,000 unit 09/24/18 11:40 Heparin - IVPUSH PRN PRN Heparin Heparin Sodium (Porcine) 5,000 unit 09/24/18 11:40 09/25/18 03:41 Heparin - IVPUSH 5,000 unit PRN PRN Administration Heparin HEPARIN SOD,PORK IN 0.45% NACL 25,000 units in 500 mls @ 20 mls/hr 09/24/18 11 :45 09/25/18 03:40 Heparin-1/2ns 25,000 Units/500 IVPB 1,150 units/hr TITR [facility] 23 mls/hr Administration Protocol 1,000 UNITS/HR Methylprednisolone Sodium Succinate 60 mg 09/22/18 21:00 09/25/18 09:25 Solu-Medrol - IVPUSH 60 mg Q6H-IV [facility] Administration Nicotine 21 mg 09/23/18 16:00 09/25/18 09:26 Nicoderm Patch - TD 21 mg DAILY [facility] Administration Oxycodone HCl 10 mg 09/22/18 22:50 09/25/18 10:04 Roxicodone - PO 10 mg Q6H PRN Administration PAIN LEVEL 4 - 6 Quetiapine Fumarate 25 mg 09/22/18 23:15 09/24/18 21:52 Seroquel - PO 25 mg HS [facility] Administration Ranitidine HCl 150 mg 09/23/18 12:45 09/25/18 09:26 Zantac - PO 150 mg BID [facility] Administration Sitagliptin Phosphate 100 mg 09/23/18 07:00 09/25/18 06:35 Januvia - PO 100 mg DAILY@0700 [facility] Administration Umeclidinium/Vilanterol 1 puff 09/23/18 12:00 09/25/18 09:27 Anoro Ellipta 62.5-25 Mcg Inh IH 1 puff DAILY [facility] Administration Impression 1. CKD vs kristie 2. hyperkalemia 3. copd 4. obesity 5. hx smoking 6. dm 7. htn Plan - potassium is stable - renal function is improving - lasix on hold - asiya on hold - bp is stable - discussed diet with pt - hold metformin for now
--- NOTE | 2018-09-25 12:44 | PN ---
Progress Note (short form) - Note Progress Note: PULMONARY States breathing is better. No cough or wheezing. No chest pain or palpitations. Vital Signs Period Temp Pulse Resp BP Sys/Pedro Pulse Ox Last 24 Hr 97.8 F-98.2 F 68-97 20-20 97-119/60-78 94-94 Gen: NAD at rest Heart: RRR Lung: distant breath sounds Abd: soft, nontender Ext: + edema CBC, BMP 09/23/18 05:30 09/25/18 05:30 Active Medications Albuterol Sulfate (Ventolin 0.083% Nebulizer Soln -) 1 amp NEB Q4H PRN PRN Reason: SHORT OF BREATH/WHEEZING Last Admin: 09/25/18 07:31 Dose: 1 amp Albuterol Sulfate (Ventolin Hfa Inhaler -) 2 puff IH Q4H PRN PRN Reason: SHORT OF BREATH/WHEEZING Last Admin: 09/23/18 18:50 Dose: 2 puff Alprazolam (Xanax -) 2 mg PO BID [facility] Last Admin: 09/25/18 09:26 Dose: 2 mg Amlodipine Besylate (Norvasc -) 2.5 mg PO DAILY [facility] Last Admin: 09/25/18 09:26 Dose: 2.5 mg Aripiprazole (Abilify) 20 mg PO DAILY [facility] Aspirin (Asa -) 81 mg PO DAILY [facility] Last Admin: 09/25/18 09:26 Dose: 81 mg Atorvastatin Calcium (Lipitor -) 20 mg PO HS [facility] Last Admin: 09/24/18 21:53 Dose: 20 mg Heparin Sodium (Porcine) (Heparin -) 1,000 unit IVPUSH PRN PRN PRN Reason: Heparin Last Admin: 09/25/18 12:02 Dose: 1,000 unit Heparin Sodium (Porcine) (Heparin -) 5,000 unit IVPUSH PRN PRN PRN Reason: Heparin Last Admin: 09/25/18 03:41 Dose: 5,000 unit HEPARIN SOD,PORK IN 0.45% NACL (Heparin-1/2ns 25,000 Units/500) 25,000 units in 500 mls @ 20 mls/hr IVPB TITR [facility]; Protocol Last Admin: 09/25/18 12:01 Dose: 1,250 units/hr, 25 mls/hr Methylprednisolone Sodium Succinate (Solu-Medrol -) 60 mg IVPUSH Q6H-IV [facility] Last Admin: 09/25/18 09:25 Dose: 60 mg Nicotine (Nicoderm Patch -) 21 mg TD DAILY [facility] Last Admin: 09/25/18 09:26 Dose: 21 mg Oxycodone HCl (Roxicodone -) 10 mg PO Q6H PRN PRN Reason: PAIN LEVEL 4 - 6 Last Admin: 09/25/18 10:04 Dose: 10 mg Quetiapine Fumarate (Seroquel -) 25 mg PO HS [facility] Last Admin: 09/24/18 21:52 Dose: 25 mg Ranitidine HCl (Zantac -) 150 mg PO BID [facility] Last Admin: 09/25/18 09:26 Dose: 150 mg Sitagliptin Phosphate (Januvia -) 100 mg PO DAILY@0700 [facility] Last Admin: 09/25/18 06:35 Dose: 100 mg Umeclidinium/Vilanterol (Anoro Ellipta 62.5-25 Mcg Inh) 1 puff IH DAILY [facility] Last Admin: 09/25/18 09:27 Dose: 1 puff A/P Acute COPD Exacerbation Morbid Obesity Obstructive Sleep Apnea Acute Kidney Injury HTN DM Smoker - will decrease medrol - inhaled bronchodilators - O2 to keep SpO2 >90% - clinically significant VTE less likely as LE dopplers negative, echocardiogram with normal right heart function, can d/c anticoagulation - smoking cessation - CPAP at night - DVT prophylaxis
[2018-09-25] MEDS: ARIPiprazole 10 MG TABLET PO SCH (13:00)
[2018-09-25] MEDS ORDERED: methylPREDNISolone NA SUCC 40 MG/1 ML VIAL IVPUSH SCH (14:00)
--- NOTE | 2018-09-25 17:48 | PN ---
Progress Note, Physician - Current Medication List Current Medications: Active Medications Albuterol Sulfate (Ventolin 0.083% Nebulizer Soln -) 1 amp NEB Q4H PRN PRN Reason: SHORT OF BREATH/WHEEZING Last Admin: 09/25/18 16:31 Dose: 1 amp Albuterol Sulfate (Ventolin Hfa Inhaler -) 2 puff IH Q4H PRN PRN Reason: SHORT OF BREATH/WHEEZING Last Admin: 09/23/18 18:50 Dose: 2 puff Alprazolam (Xanax -) 2 mg PO BID [facility] Last Admin: 09/25/18 09:26 Dose: 2 mg Amlodipine Besylate (Norvasc -) 2.5 mg PO DAILY [facility] Last Admin: 09/25/18 09:26 Dose: 2.5 mg Aripiprazole (Abilify) 20 mg PO DAILY [facility] Last Admin: 09/25/18 13:00 Dose: 20 mg Aspirin (Asa -) 81 mg PO DAILY [facility] Last Admin: 09/25/18 09:26 Dose: 81 mg Atorvastatin Calcium (Lipitor -) 20 mg PO HS [facility] Last Admin: 09/24/18 21:53 Dose: 20 mg Methylprednisolone Sodium Succinate (Solu-Medrol -) 40 mg IVPUSH BID [facility] Nicotine (Nicoderm Patch -) 21 mg TD DAILY [facility] Last Admin: 09/25/18 09:26 Dose: 21 mg Oxycodone HCl (Roxicodone -) 10 mg PO Q6H PRN PRN Reason: PAIN LEVEL 4 - 6 Last Admin: 09/25/18 15:24 Dose: 10 mg Quetiapine Fumarate (Seroquel -) 25 mg PO HS [facility] Last Admin: 09/24/18 21:52 Dose: 25 mg Ranitidine HCl (Zantac -) 150 mg PO BID [facility] Last Admin: 09/25/18 09:26 Dose: 150 mg Sitagliptin Phosphate (Januvia -) 100 mg PO DAILY@0700 [facility] Last Admin: 09/25/18 06:35 Dose: 100 mg Umeclidinium/Vilanterol (Anoro Ellipta 62.5-25 Mcg Inh) 1 puff IH DAILY [facility] Last Admin: 09/25/18 09:27 Dose: 1 puff - Objective Vital Signs: Vital Signs Temperature 97.9 F 09/25/18 17:00 Pulse Rate 97 H 09/25/18 17:00 Respiratory Rate 20 09/25/18 17:00 Blood Pressure 107/55 L 09/25/18 17:00 O2 Sat by Pulse Oximetry (%) 94 L 09/25/18 09:00 Constitutional: Yes: No Distress HENT: Yes: Atraumatic Neck: Yes: Supple Cardiovascular: Yes: Regular Rate and Rhythm Respiratory: Yes: Rhonchi Gastrointestinal: Yes: Normal Bowel Sounds Extremities: Yes: WNL Edema: No Peripheral Pulses WNL: Yes Neurological: Yes: Alert, Oriented Labs: CBC, BMP 09/23/18 05:30 09/25/18 05:30 INR, PTT INR 0.98 (0.83-1.09) 09/22/18 16:20 Problem List - Problems (1) COPD exacerbation Assessment/Plan: iv steroids duo nebs Code(s): J44.1 - CHRONIC OBSTRUCTIVE PULMONARY DISEASE W (ACUTE) EXACERBATION (2) Hypoxia Assessment/Plan: on oxygen Code(s): R09.02 - HYPOXEMIA (3) SOB (shortness of breath) Code(s): R06.02 - SHORTNESS OF BREATH (4) Bipolar disorder Assessment/Plan: on meds stable Code(s): F31.9 - BIPOLAR DISORDER, UNSPECIFIED (5) Diabetes Assessment/Plan: on meds monitor Code(s): E11.9 - TYPE 2 DIABETES MELLITUS WITHOUT COMPLICATIONS (6) HTN (hypertension) Code(s): I10 - ESSENTIAL (PRIMARY) HYPERTENSION (7) Morbid obesity Code(s): E66.01 - MORBID (SEVERE) OBESITY DUE TO EXCESS CALORIES
[2018-09-25] MEDS: ATORVASTATIN CA 20 MG TABLET (FP) PO SCH (22:26)
[2018-09-25] MEDS: INSULIN SLIDING SCALE (NOVOLOG) 1 VIAL SQ SCH (22:26)
[2018-09-25] MEDS: QUEtiapine FUMARATE 25 MG TABLET (FP) PO SCH (22:26)
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
[2018-09-26] MEDS: INSULIN SLIDING SCALE (NOVOLOG) 1 VIAL SQ SCH ×3 (06:09→17:15)
[2018-09-26] MEDS: sitaGLIPtin PHOSPHATE 100 MG TABLET (FP) PO SCH (06:09)
[2018-09-26 07:26] LABS: HEMATOCRIT 28.1 % (35.4-49); MCH 28.5 pg (25.7-33.7); MCHC 32.2 g/dl (32.0-35.9); MEAN CELL VOLUME 88.6 fl (80-96); MEAN PLT VOLUME 8.3 fl (7.5-11.1); PLATELET COUNT 288 K/MM3 (134-434); RBC 3.17 M/mm3 (4.00-5.60); RDW 16.5 % (11.9-15.9); WHITE BLOOD COUNT 10.1 K/mm3 (4.0-10.0)
[2018-09-26] MEDS: ALBUTEROL SO4 0.083% IH SOL 2.5 MG/3 ML VIAL.NEB. NEB PRN (07:48)
[2018-09-26] MEDS: ARIPiprazole 10 MG TABLET PO SCH (10:10)
[2018-09-26] MEDS: NICOTINE 21 MG/24 HOURS TOPICAL PATCH TD SCH (10:10)
[2018-09-26] MEDS: methylPREDNISolone NA SUCC 40 MG/1 ML VIAL IVPUSH SCH (10:10)
[2018-09-26] MEDS: RANITIDINE HCL 150 MG TABLET (FP) PO SCH (10:10)
[2018-09-26] MEDS: ALPRAZolam 2 MG TABLET PO SCH (10:10)
[2018-09-26] MEDS: ASPIRIN 81 MG CHEWABLE TABLETS PO SCH (10:10)
[2018-09-26] MEDS: amLODIPine BESYLATE 2.5 MG TABLET (FP) PO SCH (10:10)
[2018-09-26] MEDS: UMECLIDINIUM/VILANTEROL (ANORO) 62.5/25 MCG INHALER IH SCH (10:11)
[2018-09-26] MEDS ORDERED: oxyCODONE HCL 5 MG TABLET PO PRN (10:59)
--- NOTE | 2018-09-26 11:12 | PN ---
Progress Note, Physician History of Present Illness: PULMONARY ALERT,COMFORTABLE AT REST LESS DYSPNEIC WITH EXERTION. SLEPT WELL ON CPAP 5 - Current Medication List Current Medications: Active Medications Albuterol Sulfate (Ventolin 0.083% Nebulizer Soln -) 1 amp NEB Q4H PRN PRN Reason: SHORT OF BREATH/WHEEZING Last Admin: 09/26/18 07:48 Dose: 1 amp Albuterol Sulfate (Ventolin Hfa Inhaler -) 2 puff IH Q4H PRN PRN Reason: SHORT OF BREATH/WHEEZING Last Admin: 09/23/18 18:50 Dose: 2 puff Alprazolam (Xanax -) 2 mg PO BID [facility] Last Admin: 09/26/18 10:10 Dose: 2 mg Amlodipine Besylate (Norvasc -) 2.5 mg PO DAILY [facility] Last Admin: 09/26/18 10:10 Dose: 2.5 mg Aripiprazole (Abilify) 20 mg PO DAILY [facility] Last Admin: 09/26/18 10:10 Dose: 20 mg Aspirin (Asa -) 81 mg PO DAILY [facility] Last Admin: 09/26/18 10:10 Dose: 81 mg Atorvastatin Calcium (Lipitor -) 20 mg PO HS [facility] Last Admin: 09/25/18 22:26 Dose: 20 mg Insulin Aspart (Novolog Vial Sliding Scale -) 1 vial SQ [facility]; Protocol Last Admin: 09/26/18 06:09 Dose: 10 units Methylprednisolone Sodium Succinate (Solu-Medrol -) 40 mg IVPUSH BID [facility] Last Admin: 09/26/18 10:10 Dose: 40 mg Nicotine (Nicoderm Patch -) 21 mg TD DAILY [facility] Last Admin: 09/26/18 10:10 Dose: 21 mg Oxycodone HCl (Roxicodone -) 10 mg PO Q6H PRN PRN Reason: PAIN LEVEL 4-6 Quetiapine Fumarate (Seroquel -) 25 mg PO HS [facility] Last Admin: 09/25/18 22:26 Dose: 25 mg Ranitidine HCl (Zantac -) 150 mg PO BID [facility] Last Admin: 09/26/18 10:10 Dose: 150 mg Sitagliptin Phosphate (Januvia -) 100 mg PO DAILY@0700 [facility] Last Admin: 09/26/18 06:09 Dose: 100 mg Umeclidinium/Vilanterol (Anoro Ellipta 62.5-25 Mcg Inh) 1 puff IH DAILY [facility] Last Admin: 09/26/18 10:11 Dose: 1 puff - Objective Vital Signs: Vital Signs Temperature 98.4 F 09/26/18 06:00 Pulse Rate 80 09/26/18 06:00 Respiratory Rate 20 09/26/18 06:00 Blood Pressure 116/67 09/26/18 06:00 O2 Sat by Pulse Oximetry (%) 93 L 09/26/18 07:48 Constitutional: Yes: Well Nourished, Calm, Obese Eyes: Yes: WNL HENT: Yes: WNL Neck: Yes: WNL Cardiovascular: Yes: Regular Rate and Rhythm, S1, S2 Respiratory: Yes: Diminished Gastrointestinal: Yes: Normal Bowel Sounds, Soft Extremities: Yes: WNL Edema: Yes (LESS EDEMA BILATERALLY) Labs: CBC, BMP 09/26/18 06:19 09/25/18 05:30 INR, PTT INR 0.98 (0.83-1.09) 09/22/18 16:20 Problem List - Problems (1) Sleep apnea Code(s): G47.30 - SLEEP APNEA, UNSPECIFIED (2) Anemia Code(s): D64.9 - ANEMIA, UNSPECIFIED (3) COPD exacerbation Code(s): J44.1 - CHRONIC OBSTRUCTIVE PULMONARY DISEASE W (ACUTE) EXACERBATION (4) Hypoxia Code(s): R09.02 - HYPOXEMIA (5) Renal insufficiency Code(s): N28.9 - DISORDER OF KIDNEY AND URETER, UNSPECIFIED (6) SOB (shortness of breath) Code(s): R06.02 - SHORTNESS OF BREATH (7) Asthma exacerbation Code(s): J45.901 - UNSPECIFIED ASTHMA WITH (ACUTE) EXACERBATION Assessment/Plan IMP DYSPNEA IMPROVED COPD EXACERBATION IMPROVING ANEMIA KIMI IMPROVING TRACE MORBID OBESITY H/O MAC DM HTN TOBACCO ABUSE PLAN INHALE BRONCHODILATORS O2 PREDNISONE AC MONITOR LYTES,RENAL FUNCTION STOOL FOR OCCULT BLOOD NEGATIVE LASIX NEEDED SMOKING CESSATION COUNSELED CPAP [address] HANSEN Problem List - Problems (1) Sleep apnea Code(s): G47.30 - SLEEP APNEA, UNSPECIFIED (2) Anemia Code(s): D64.9 - ANEMIA, UNSPECIFIED (3) COPD exacerbation Code(s): J44.1 - CHRONIC OBSTRUCTIVE PULMONARY DISEASE W (ACUTE) EXACERBATION (4) Hypoxia Code(s): R09.02 - HYPOXEMIA (5) Renal insufficiency Code(s): N28.9 - DISORDER OF KIDNEY AND URETER, UNSPECIFIED (6) SOB (shortness of breath) Code(s): R06.02 - SHORTNESS OF BREATH (7) Asthma exacerbation Code(s): J45.901 - UNSPECIFIED ASTHMA WITH (ACUTE) EXACERBATION
--- NOTE | 2018-09-26 13:05 | PN ---
Progress Note, Physician History of Present Illness: Pt seen and examined at bedside. He is awake and alert. He denies shortness of breath. He is asking to go home. He wants to have his renal workup done as outpt. - Current Medication List Current Medications: Active Medications Albuterol Sulfate (Ventolin 0.083% Nebulizer Soln -) 1 amp NEB Q4H PRN PRN Reason: SHORT OF BREATH/WHEEZING Last Admin: 09/26/18 07:48 Dose: 1 amp Albuterol Sulfate (Ventolin Hfa Inhaler -) 2 puff IH Q4H PRN PRN Reason: SHORT OF BREATH/WHEEZING Last Admin: 09/23/18 18:50 Dose: 2 puff Alprazolam (Xanax -) 2 mg PO BID [facility] Last Admin: 09/26/18 10:10 Dose: 2 mg Amlodipine Besylate (Norvasc -) 2.5 mg PO DAILY [facility] Last Admin: 09/26/18 10:10 Dose: 2.5 mg Aripiprazole (Abilify) 20 mg PO DAILY [facility] Last Admin: 09/26/18 10:10 Dose: 20 mg Aspirin (Asa -) 81 mg PO DAILY [facility] Last Admin: 09/26/18 10:10 Dose: 81 mg Atorvastatin Calcium (Lipitor -) 20 mg PO HS [facility] Last Admin: 09/25/18 22:26 Dose: 20 mg Insulin Aspart (Novolog Vial Sliding Scale -) 1 vial SQ [facility]; Protocol Last Admin: 09/26/18 12:00 Dose: 6 units Methylprednisolone Sodium Succinate (Solu-Medrol -) 40 mg IVPUSH BID [facility] Stop: 09/26/18 23:00 Last Admin: 09/26/18 10:10 Dose: 40 mg Nicotine (Nicoderm Patch -) 21 mg TD DAILY [facility] Last Admin: 09/26/18 10:10 Dose: 21 mg Oxycodone HCl (Roxicodone -) 10 mg PO Q6H PRN PRN Reason: PAIN LEVEL 4-6 Last Admin: 09/26/18 11:33 Dose: 10 mg Prednisone (Deltasone -) 60 mg PO DAILY [facility] Quetiapine Fumarate (Seroquel -) 25 mg PO HS [facility] Last Admin: 09/25/18 22:26 Dose: 25 mg Ranitidine HCl (Zantac -) 150 mg PO BID [facility] Last Admin: 09/26/18 10:10 Dose: 150 mg Sitagliptin Phosphate (Januvia -) 100 mg PO DAILY@0700 [facility] Last Admin: 09/26/18 06:09 Dose: 100 mg Umeclidinium/Vilanterol (Anoro Ellipta 62.5-25 Mcg Inh) 1 puff IH DAILY [facility] Last Admin: 09/26/18 10:11 Dose: 1 puff - Objective Vital Signs: Vital Signs Temperature 98.4 F 09/26/18 06:00 Pulse Rate 80 09/26/18 06:00 Respiratory Rate 20 09/26/18 06:00 Blood Pressure 116/67 09/26/18 06:00 O2 Sat by Pulse Oximetry (%) 95 09/26/18 09:00 Constitutional: Yes: Calm Eyes: Yes: Conjunctiva Clear HENT: Yes: Atraumatic Neck: Yes: Supple Cardiovascular: Yes: S1, S2 Respiratory: Yes: CTA Bilaterally Gastrointestinal: Yes: Normal Bowel Sounds, Soft, Abdomen, Obese Genitourinary: Yes: WNL Musculoskeletal: Yes: WNL Extremities: Yes: WNL Edema: Yes Edema: LLE: Trace, RLE: Trace Integumentary: Yes: WNL Neurological: Yes: Oriented Psychiatric: Yes: Oriented Labs: CBC, BMP 09/26/18 06:19 09/25/18 05:30 INR, PTT INR 0.98 (0.83-1.09) 09/22/18 16:20 Problem List - Problems (1) Hyperkalemia Code(s): E87.5 - HYPERKALEMIA (2) Anemia Code(s): D64.9 - ANEMIA, UNSPECIFIED (3) COPD exacerbation Code(s): J44.1 - CHRONIC OBSTRUCTIVE PULMONARY DISEASE W (ACUTE) EXACERBATION (4) Renal insufficiency Code(s): N28.9 - DISORDER OF KIDNEY AND URETER, UNSPECIFIED (5) SOB (shortness of breath) Code(s): R06.02 - SHORTNESS OF BREATH Assessment/Plan Current Medication Current Medications Generic Name Dose Route Start Last Admin Trade Name Freq PRN Reason Stop Dose Admin Albuterol Sulfate 1 amp 09/23/18 12:04 09/26/18 07:48 Ventolin 0.083% Nebulizer Soln - NEB 1 amp Q4H PRN Administration SHORT OF BREATH/WHEEZING Albuterol Sulfate 2 puff 09/23/18 12:57 09/23/18 18:50 Ventolin Hfa Inhaler - IH 2 puff Q4H PRN Administration SHORT OF BREATH/WHEEZING Alprazolam 2 mg 09/22/18 22:00 09/26/18 10:10 Xanax - PO 2 mg BID [facility] Administration Amlodipine Besylate 2.5 mg 09/23/18 10:00 09/26/18 10:10 Norvasc - PO 2.5 mg DAILY [facility] Administration Aripiprazole 20 mg 09/25/18 10:00 09/26/18 10:10 Abilify PO 20 mg DAILY [facility] Administration Aspirin 81 mg 09/23/18 10:00 09/26/18 10:10 Asa - PO 81 mg DAILY [facility] Administration Atorvastatin Calcium 20 mg 09/22/18 22:00 09/25/18 22:26 Lipitor - PO 20 mg HS [facility] Administration Insulin Aspart 1 vial 09/25/18 22:00 09/26/18 12:00 Novolog Vial Sliding Scale - SQ 6 units ACHS [facility] Administration Protocol Methylprednisolone Sodium Succinate 40 mg 09/25/18 22:00 09/26/18 10:10 Solu-Medrol - IVPUSH 09/26/18 23:00 40 mg BID [facility] Administration Nicotine 21 mg 09/23/18 16:00 09/26/18 10:10 Nicoderm Patch - TD 21 mg DAILY [facility] Administration Oxycodone HCl 10 mg 09/26/18 10:59 09/26/18 11:33 Roxicodone - PO 10 mg Q6H PRN Administration PAIN LEVEL 4-6 Prednisone 60 mg 09/27/18 10:00 Deltasone - PO DAILY [facility] Quetiapine Fumarate 25 mg 09/22/18 23:15 09/25/18 22:26 Seroquel - PO 25 mg HS [facility] Administration Ranitidine HCl 150 mg 09/23/18 12:45 09/26/18 10:10 Zantac - PO 150 mg BID [facility] Administration Sitagliptin Phosphate 100 mg 09/23/18 07:00 09/26/18 06:09 Januvia - PO 100 mg DAILY@0700 [facility] Administration Umeclidinium/Vilanterol 1 puff 09/23/18 12:00 09/26/18 10:11 Anoro Ellipta 62.5-25 Mcg Inh IH 1 puff DAILY [facility] Administration Impression 1. CKD vs kristie 2. hyperkalemia 3. copd 4. obesity 5. hx smoking 6. dm 7. htn Plan - renal function has been improving - monitor bmp - asiya stopped secondary to hyperkalemia - metformin stopped due to elevated creatinine - recommend lifestyle modification including weight loss and smoking cessation
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
--- NOTE | 2018-09-26 15:21 | DS ---
Physical Examination Vital Signs: Vital Signs Temperature 98.4 F 09/26/18 06:00 Pulse Rate 80 09/26/18 06:00 Respiratory Rate 20 09/26/18 06:00 Blood Pressure 116/67 09/26/18 06:00 O2 Sat by Pulse Oximetry (%) 95 09/26/18 09:00 Constitutional: Yes: No Distress HENT: Yes: Atraumatic Neck: Yes: Supple Cardiovascular: Yes: Regular Rate and Rhythm Respiratory: Yes: Rhonchi Gastrointestinal: Yes: Normal Bowel Sounds Extremities: Yes: WNL Edema: No Neurological: Yes: Alert, Oriented Labs: CBC, BMP 09/26/18 06:19 09/25/18 05:30 Discharge Summary Reason For Visit: SHORTNESS OF BREATH,ANEMIA,RENAL INSUFFICIENCY Current Active Problems Acute on chronic diastolic CHF (congestive heart failure) (Acute) Anemia (Acute) Bipolar disorder (Acute) COPD exacerbation (Acute) Diabetes (Acute) [place] cardiac risk >20% in next 10 years (Acute) HTN (hypertension) (Acute) Hyperkalemia (Acute) Hypoxia (Acute) Morbid obesity (Acute) Pulmonary embolism (Acute) Renal insufficiency (Acute) SOB (shortness of breath) (Acute) Sedentary lifestyle (Acute) Sleep apnea (Acute) Smokes cigarettes (Acute) Substance abuse in remission (Acute) Condition: Stable - Instructions Referrals: Bishop Armijo MD [Staff Physician] - El Gutierrez MD [Staff Physician] - - Home Medications Comprehensive Discharge Medication List: Ambulatory Orders Albuterol 0.083% Nebulizer Judy [Ventolin 0.083% Nebulizer Soln -] 1 neb NEB Q6H 01/25/14 Albuterol 0.083% Nebulizer Judy [Ventolin 0.083% Nebulizer Soln -] 1 neb NEB QID PRN #30 vial 01/25/14 Alprazolam [Xanax] 2 mg PO BID 01/25/14 Atorvastatin Ca [Lipitor] 20 mg PO HS 01/25/14 Amlodipine Besylate 2.5 mg PO DAILY 09/22/18 Aripiprazole [Abilify] 20 mg PO DAILY 09/22/18 Aspirin 81 mg PO DAILY 09/22/18 Cholecalciferol (Vitamin D3) [Vitamin D -] 2,000 unit PO DAILY 09/22/18 Linagliptin [Tradjenta] 5 mg PO ASDIR 09/22/18 Oxycodone HCl/Acetaminophen [Percocet 5-325 mg Tablet] 2 tab PO BID 09/22/18 Quetiapine Fumarate [Seroquel -] 25 mg PO HS 09/22/18 predniSONE [Deltasone -] 60 mg PO DAILY #90 tablet 09/26/18 see pulmonary and renal as out patient
[2018-09-26 15:40] VITALS: BP 108/51; PULSE 102; TEMP 98
[2018-09-27] MEDS ORDERED: predniSONE 20 MG TABLET (UD) PO SCH (10:00)
== END 2018-09-26 18:00 | disposition home health service (06) | DRG 140 ==
LOC: JER 15:07 → JERBED 18:05 → J4W 20:34
PROVIDERS: ADMIT Internal Medicine; ATTEND Internal Medicine
PROC: 3E0F7GC Introduction of Other Therapeutic Substance into Respiratory Tract, Via Natural or Artificial Opening (ICD-10-PCS; principal; 2018-09-22)
DX: J44.1 Chronic obstructive pulmonary disease with (acute) exacerbation (principal); I11.0 Hypertensive heart disease with heart failure; I50.33 Acute on chronic diastolic (congestive) heart failure; N17.9 Acute kidney failure, unspecified; E87.5 Hyperkalemia; Z68.43 Body mass index [BMI] 50.0-59.9, adult; F20.9 Schizophrenia, unspecified; E66.01 Morbid (severe) obesity due to excess calories; E11.9 Type 2 diabetes mellitus without complications; D64.9 Anemia, unspecified; F31.9 Bipolar disorder, unspecified; F41.9 Anxiety disorder, unspecified; F17.210 Nicotine dependence, cigarettes, uncomplicated; Z79.84 Long term (current) use of oral hypoglycemic drugs; G47.33 Obstructive sleep apnea (adult) (pediatric); Z91.89 Other specified personal risk factors, not elsewhere classified; R09.02 Hypoxemia; Z88.5 Allergy status to narcotic agent; F14.11 Cocaine abuse, in remission
CPT/HCPCS: 36415; 71045-TC-FY; 71046-TC-FY; 76775-TC; 80048; 80053; 80061; 81003; 82272; 82436; 82550; 82553; 82565; 82570; 82803; 82962; 83036; 83721; 83880; 84133; 84156; 84300; 84443; 84484; 85025; 85027; 85379; 85610; 85730; 93005; 93010; 93306-TC; 93970-TC; 94640; 94660; 99283-25; J1644